=== PATIENT | male | born 1995 | race Caucasian/White ===

== ENCOUNTER 2019-03-18 05:42 | Inpatient (IN) | payer BC, OTHER ==
[2019-03-18] MEDS ORDERED: Ondansetron PF 4 MG/2 ML Vial ONE (06:06)
[2019-03-18] MEDS ORDERED: Morphine 4 MG/ML VIAL ONE (06:06)
[2019-03-18 06:27] LABS: #Basophils 0.1 thou/uL (0.0-0.2); #Eosinphils 0.1 thou/uL (0.0-0.7); #Lymphocytes 3.6 thou/uL (1.20-3.40); #Monocytes 1.5 thou/uL (0.11-0.59); %Basophils 0.7 % (0.0-1.0); %Eosinophils 0.7 % (0.0-10.0); %Lymphocytes 25.2 % (21.0-51.0); %Monocytes 10.2 % (0.0-10.0); %Neutrophils 63.2 % (42.0-75.0); Hemoglobin 17.1 g/dL (14.0-18.0); Mean Corpuscular HGB CONC 33.6 g/dL (32.0-36.0); Mean Corpuscular Hemoglobin 30.8 pg (27.0-31.0); Mean Corpuscular Volume 91.6 fL (78.0-98.0); Mean Platelet Volume 6.4 fL (7.4-10.4); Platelet Count 336 thou/uL (130-400); RBC Distribution Width 12.1 % (11.5-14.5); Red Blood Cell (RBC) Count 5.55 mill/uL (4.70-6.10); White Blood Cell (WBC) Count 14.2 thou/uL (4.8-10.8)
[2019-03-18 06:49] LABS: ALT (SGPT) 18 U/L (8-55); AST (SGOT) 24 U/L (5-34); Albumin 4.7 g/dL (3.5-5.0); Alkaline Phosphatase 84 U/L (40-150); Anion Gap 16 mmol/L (10-20); BUN (Urea Nitrogen) 16 mg/dL (8.9-20.6); Calc. Creatinine Clearance 0 mL/min (70-130); Calcium 10.2 mg/dL (7.8-10.44); Carbon Dioxide 21 mmol/L (22-29); Chloride 101 mmol/L (98-107); Estimated GFR-MDRD Greater than 90; Globulin 4.4 g/dL (2.4-3.5); Glucose 86 mg/dL (70-105); Potassium 4.4 mmol/L (3.5-5.1); Protein, Total 9.1 g/dL (6.0-8.3); Sodium 134 mmol/L (136-145)
[2019-03-18 07:08] LABS: Bilirubin Negative (Negative); Blood, Urine Negative (Negative); Clarity Clear (Clear); Glucose, Urine (Dipstick) Normal (Negative); Leukocyte Negative Leu/uL (Negative); Nitrite Negative (Negative); Protein, Urine (Dipstick) Negative (Neg-Trace); Urobilinogen Normal mg/dL (Less than 2)
--- NOTE | 2019-03-18 09:31 | MRI ---
MRI Lumbar Spine Noncontrast: HISTORY: Bilateral leg weakness and back pain after lifting heavy weights on Friday. COMPARISON: None FINDINGS: The visualized retroperitoneal structures demonstrate a normal appearance. Conus medullaris is normal in morphology and terminates at the L1-2 level. Normal signal intensity is demonstrated in the bone marrow. L1-2: There is no disc bulge or disc herniation. Central spinal canal and neural foramina are patent. L2-3: There is no disc bulge or disc herniation. Central spinal canal and neural foramina are patent. L3-4: There is no disc bulge or disc herniation. Central spinal canal and neural foramina are patent. L4-5: There is a disc osteophyte complex with large central disc protrusion/extrusion resulting in se renetta narrowing of the central spinal canal. The AP dimensions of the disc extrusion measures 1.2 cm in AP dimensions. There is mild bilateral neural foraminal narrowing. L5-S1: There is a broad-based disc bulge with central disc protrusion with associated increased T2-we ighted signal intensity at the right posterolateral margin of the disc protrusion suggesting associate annular tear. This broad-based disc bulge/protrusion does contact the bilateral traversing S1 nerve roots resulting in slight posterior displacement of the nerve roots. There is mild narrowing of the central spinal canal. Mild bilateral neural foraminal narrowing is present. IMPRESSION: 1. There is a disc osteophyte complex with large central disc protrusion/extrusion at the L4-5 level resulting in severe narrowing of the central spinal canal. 2. Broad-based disc osteophyte complex at the L5-S1 level which contacts and results in posterior dis placement of the bilateral traversing S1 nerve roots. 3. Above findings discussed with in the emergency department on 03/18/2019 at 0928 hours.
--- NOTE | 2019-03-18 09:40 | MRI ---
EXAM: MRI Thoracic Spine WO Con PROVIDED CLINICAL HISTORY: Bilateral lower extremity weakness and back pain after lifting heavy weights on Friday. COMPARISON: None FINDINGS: Normal signal intensity is demonstrated in the bone marrow. Paravertebral soft tissues demonstrate no rmal MRI appearance. There are minimal right paracentral disc protrusions at the T7-8 and T8-9 levels with slightly larger right paracentral disc protrusion at the T9-T10 level. The disc protrusions and osteophyte formation at the T8-9 and T9-T10 levels result in slight flattening of the right anterolateral aspect of the spinal cord, but there is normal signal intensity in the spinal cord. No significant additional intradural or extradural defect is identified. Central spinal canal is patent at the remai nedra levels of the thoracic spine. There is no neural foraminal narrowing at any level of the thoracic spine. IMPRESSION: Minimal disc degenerative changes at the T7-8, T8-9, and T9-T10 levels. The neural foramina are paten t at all levels of the thoracic spine.
[2019-03-18] MEDS ORDERED: PHENYLEPHRINE-NS 100 MCG/ML 10 ML SYRINGE ONE (11:27)
[2019-03-18] MEDS ORDERED: Glycopyrrolate 0.2 MG/ML 5 ML SYRINGE ONE (11:27)
[2019-03-18] MEDS ORDERED: Dexamethasone 20 MG/5 ML VIAL ONE (11:27)
[2019-03-18] MEDS ORDERED: Rocuronium Bromide 10 MG/ML (10ML VIAL) ONE (11:27)
[2019-03-18] MEDS ORDERED: Vecuronium 10 MG VIAL ONE (11:27)
[2019-03-18] MEDS ORDERED: Lidocaine 1% PF 5 ML VIAL ONE ×2 (11:27→12:08)
[2019-03-18] MEDS ORDERED: PROPOFOL 200 MG/20 ML VIAL ONE (11:27)
[2019-03-18] MEDS ORDERED: Rocuronium Bromide 50 MG/5 ML VIAL ONE (12:08)
[2019-03-18] MEDS ORDERED: PROPOFOL 20 ML ONE (12:08)
[2019-03-18] MEDS ORDERED: Thrombin 5000 UNITS/5 ML VIAL ONE ×2 (12:24→15:58)
[2019-03-18] MEDS ORDERED: Sodium Chloride 0.9% 10 ML ONE (12:24)
[2019-03-18] MEDS ORDERED: Fentanyl 100 MCG/2 ML VIAL ONE ×4 (13:06→18:29)
[2019-03-18] MEDS ORDERED: Lidocaine 2% Jelly 5 ML TUBE ONE (13:17)
[2019-03-18] MEDS ORDERED: Clindamycin/D5W 900 mg/50 ml Premix Bag ONE (13:27)
[2019-03-18] MEDS ORDERED: Levofloxacin 500 mg/D5W 100 ml Premix Bag ONE (13:27)
--- NOTE | 2019-03-18 13:35 | HP ---
This is a 50-minute initial hospital visit note, in which 50 minutes were spent reviewing the imaging record, evaluation, examination of the patient, and formulation of plan. Greater than 50% time was spent in counseling on Vadim Cardenas. Mr. 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 He is also building a home. He has had a long-standing history of low back and occasional sciatica, but yesterday was lifting plywood while building a home and had the acute onset of worsening over the course of the next 24 hours into the low back, bilateral lower extremities in the L5 and S1 distributions, and also dorsiflexor weakness. He has also had difficulty with any type of spontaneous urination and that he has had significant urinary retention. All of this culminated in essentially the presentation with cauda equina syndrome. An MRI confirms a large disk extrusion at L4-L5 and somewhat smaller at L5-S1 with severe compression of the common dural tube and the cauda equina. This certainly would account for the patient's symptoms. On exam, he is alert and appropriate. He has diminished rectal tone on our emergency medicine team's exam and had a urinary retention over 1000 mL on a bladder scan. He also has severe bilateral foot drop and toe extensor weakness with moderate weakness of the quadriceps bilaterally. This may be pain limited as well. At this point, I have discussed with him and his mother that we need to proceed with surgery emergently as I am concerned about a cauda equina syndrome and to try and prevent further neurologic deficit promotes some sort of return. We are going to plan for an L4 through S1 laminectomies, partial facetectomies, foraminotomies, and diskectomies. We will plan for this and goals, indications, risks, alternatives, and complications were discussed in detail regarding the surgery and they understand that risks are up to and including, but not limited to, medical complications, surgical complications, temporary or permanent neurologic deficit despite surgery, and they understand all these risks and wish we would proceed. IMPRESSION: Cauda equina syndrome. Job ID: [id number]
[2019-03-18] MEDS ORDERED: HYDROcodone/Acetaminophen 7.5/325 mg Tablet PO PRN (17:41)
[2019-03-18] MEDS ORDERED: Fleet Enema 133 ML BOT PR PRN (17:41)
[2019-03-18] MEDS ORDERED: Acetaminophen/Codeine 30-300mg Tablet PO PRN (17:41)
[2019-03-18] MEDS ORDERED: Ondansetron PF 4 MG/2 ML Vial IVP PRN (17:41)
[2019-03-18] MEDS ORDERED: tiZANidine HCl 4 MG TAB PO PRN (17:41)
[2019-03-18] MEDS ORDERED: Bisacodyl 10 MG SUPP PR PRN (17:41)
[2019-03-18] MEDS ORDERED: Morphine 4 MG/ML VIAL SLOW IVP PRN (17:41)
[2019-03-18] MEDS ORDERED: Mag-Al 1200 mg/1200 mg/30 ML UDCUP PO PRN (17:41)
[2019-03-18] MEDS: Clindamycin/D5W 900 MG in Premix Bag 1 BAG IVPB SCH (20:59)
[2019-03-18] MEDS: Sodium Chloride 0.9% 1,000 ML IV SCH (21:00)
[2019-03-18 22:22] VITALS: BMI 36.9
[2019-03-19 05:18] LABS: #Eosinphils 0.1 thou/uL (0.0-0.7); #Lymphocytes 2.8 thou/uL (1.20-3.40); #Monocytes 1.9 thou/uL (0.11-0.59); %Eosinophils 0.3 % (0.0-10.0); %Neutrophils 74.6 % (42.0-75.0); Hemoglobin 13.3 g/dL (14.0-18.0); Mean Corpuscular HGB CONC 33.8 g/dL (32.0-36.0); Mean Corpuscular Hemoglobin 30.5 pg (27.0-31.0); Mean Corpuscular Volume 90.2 fL (78.0-98.0); Mean Platelet Volume 6.6 fL (7.4-10.4); Platelet Count 324 thou/uL (130-400); RBC Distribution Width 11.8 % (11.5-14.5); Red Blood Cell (RBC) Count 4.37 mill/uL (4.70-6.10); White Blood Cell (WBC) Count 18.7 thou/uL (4.8-10.8)
[2019-03-19] MEDS: Clindamycin/D5W 900 MG in Premix Bag 1 BAG IVPB SCH (05:39)
[2019-03-19] MEDS: traMADol HCl 50 MG TAB PO PRN ×3 (05:40→22:14)
--- NOTE | 2019-03-19 08:41 | OP ---
DATE OF PROCEDURE: 03/18/2019 PREOPERATIVE DIAGNOSES: Cauda equina syndrome with L4-L5 and L5-S1 disk extrusions and lumbar radiculopathy. POSTPROCEDURE DIAGNOSES: Cauda equina syndrome with L4-L5 and L5-S1 disk extrusions and lumbar radiculopathy. PROCEDURES PERFORMED: 1. L4-L5 and L5-S1 laminectomies, partial facetectomies, and foraminotomies. 2. Use of operative microscope for microdissection. DESCRIPTION OF PROCEDURE: After informed consent was obtained from the patient in the emergent nature, conveyed to the patient's family, who was taken to the OR. Proper patient, pause, and identification were carried out. He was placed under excellent endotracheal anesthesia and positioned prone on the OR table. All appropriate points were padded. We identified the L4, L5, and S1 dorsal spines and lamina. A linear gamal was made over this region. This area was sterilely cleansed, prepared, and draped. Proper patient, pause, and identification were carried out. Linear gamal was then made and this region again had been sterilely cleansed, prepared, and draped. Proper patient, pause, and identification was again carried out. The wound was then opened with combination of sharp, monopolar, and blunt dissection. The L4, L5, and S1 dorsal spines and lamina were exposed with excellent decompression of common dural tube; the L4, the L5, and the S1 nerve roots, which were quite compressed. Given the disk extrusions, bilateral L4-L5 diskectomies were performed with excellent decompression of common dural tube, the L4 and L5 nerve roots. Then, turned our attention to the L5-S1 and a right-sided L5-S1 diskectomy was performed with excellent decompression. We achieved excellent decompression of both S1 nerve roots as well. We then turned our attention to copious irrigation and we maximized hemostasis throughout. He was quite oozy given the size of his disk extrusions, thus his intraabdominal pressure, where we obtained excellent decompression and hemostasis. The wound was then closed in anatomic layers following sprinkling of vancomycin powder. The patient emerged from anesthesia. Job ID: [id number]
--- NOTE | 2019-03-19 10:38 | PRG ---
DATE OF SERVICE: 03/19/2019 Vadim Cardenas is postoperative day 1 from lumbar decompression and diskectomy. He is moving his left L4 and L5 with a bit more vigor. He had no contraction of his left L5 yesterday. Today, it is very trace. His right L4 is slightly improved with no movement of his right L5 myotome. He does lightly feel the tug of the Caraballo catheter. He is not yet mobilized. We will work on this. This is typical for cauda equina syndrome. Job ID: [id number]
[2019-03-19] MEDS: Sodium Chloride 0.9% 1,000 ML IV SCH ×2 (10:40→21:08)
[2019-03-19] MEDS: Acetaminophen 325 MG TAB PO PRN (17:52)
[2019-03-20] MEDS: traMADol HCl 50 MG TAB PO PRN ×2 (07:54→14:12)
[2019-03-20] MEDS: Sodium Chloride 0.9% 1,000 ML IV SCH (11:41)
[2019-03-20] MEDS: Acetaminophen 325 MG TAB PO PRN (14:12)
--- NOTE | 2019-03-20 14:55 | PRG ---
DATE OF SERVICE: 03/20/2019 Mr. Cardenas is 2 days out from his lumbar decompression for cauda equina syndrome. He continues to have perineal sensation with the tug on the Caraballo catheter and I think it would be prudent that we remove his Caraballo catheter today to start to work on mobilization and see if the patient can empty his bladder. We will do postvoid residuals as well. He does have mild improvement in his dorsiflexion, in particular on the right side today, although he remains flaccid in the right L5 distribution. Overall, he is improving. We will continue to work towards potential inpatient rehab. Job ID: [id number] MTDD
[2019-03-20] MEDS ORDERED: Tamsulosin HCl 0.4 MG CAP PO SCH (16:30)
[2019-03-21] MEDS: Tamsulosin HCl 0.4 MG CAP PO SCH (08:07)
[2019-03-21] MEDS: traMADol HCl 50 MG TAB PO PRN (08:10)
[2019-03-21] MEDS: Milk Of Magnesia 30 ML UDCUP PO PRN (09:16)
[2019-03-21 14:21] LABS: #Basophils 0.1 thou/uL (0.0-0.2); #Eosinphils 0.2 thou/uL (0.0-0.7); #Monocytes 1.4 thou/uL (0.11-0.59); #Neutrophils 7.4 thou/uL (1.40-6.50); %Basophils 0.8 % (0.0-1.0); %Eosinophils 1.1 % (0.0-10.0); %Lymphocytes 35.6 % (21.0-51.0); %Monocytes 9.8 % (0.0-10.0); %Neutrophils 52.7 % (42.0-75.0); Hemoglobin 13.2 g/dL (14.0-18.0); Mean Corpuscular HGB CONC 34.1 g/dL (32.0-36.0); Mean Corpuscular Hemoglobin 30.7 pg (27.0-31.0); Mean Corpuscular Volume 90.2 fL (78.0-98.0); Mean Platelet Volume 6.3 fL (7.4-10.4); Platelet Count 358 thou/uL (130-400); RBC Distribution Width 11.7 % (11.5-14.5); Red Blood Cell (RBC) Count 4.28 mill/uL (4.70-6.10); White Blood Cell (WBC) Count 14.1 thou/uL (4.8-10.8)
[2019-03-21 14:42] LABS: ALT (SGPT) 20 U/L (8-55); AST (SGOT) 18 U/L (5-34); Albumin 3.8 g/dL (3.5-5.0); Alkaline Phosphatase 63 U/L (40-150); Anion Gap 14 mmol/L (10-20); BUN (Urea Nitrogen) 14 mg/dL (8.9-20.6); Bilirubin, Total 0.4 mg/dL (0.2-1.2); Calc. Creatinine Clearance 296 mL/min (70-130); Calcium 9.4 mg/dL (7.8-10.44); Carbon Dioxide 24 mmol/L (22-29); Chloride 104 mmol/L (98-107); Estimated GFR-MDRD Greater than 90; Globulin 3.4 g/dL (2.4-3.5); Glucose 122 mg/dL (70-105); Potassium 3.8 mmol/L (3.5-5.1); Protein, Total 7.2 g/dL (6.0-8.3); Sodium 138 mmol/L (136-145)
[2019-03-22] MEDS: Tamsulosin HCl 0.4 MG CAP PO SCH (09:21)
[2019-03-22] MEDS: traMADol HCl 50 MG TAB PO PRN (09:23)
--- NOTE | 2019-03-22 13:41 | PRG ---
DATE OF SERVICE: 03/22/2019 This is Robbie Benedict PA-C dictating a report for Alex Frey MD. Postoperative recheck: Mr. Cardenas is now postoperative day #4 having undergone multilevel lumbar laminectomies and diskectomy. Unfortunately, the patient sustained a Code Green, in which he had a significant Valsalva maneuver when he was attempting to have a bowel movement. He became significantly lightheaded, but states this immediately resolved once he was placed back in bed. He was up walking around yesterday and was much more self-sufficient according to the patient's mother at bedside. The patient notes continued numbness and tingling into the legs, but again this is similar to what it was immediately postoperatively. He may have slightly more movement in the right lower extremity. In fact, on strength exam, he does have improved strength actually in the bilateral lower extremities as he moves the legs with more vigor. He has stable weakness into the bilateral dorsiflexions and right EHL. He has improving sensation into the bilateral legs. At this time, the patient is stable for discharge from neurosurgical standpoint. We are waiting on insurance approval to inpatient rehab. The patient has remained with Caraballo and he is on Flomax. He has had no bowel incontinence. He is recovering well and we will continue to wait for admission to inpatient rehab, but once this is arranged, he is ready for discharge. Please call with any changes in the patient's neurologic status. Job ID: [id number]
--- NOTE | 2019-03-22 16:13 | PRG ---
DATE OF SERVICE: 03/21/2019 This is Robbie Benedict PA-C dictating a report for Alex Frey MD. SUBJECTIVE: Mr. Cardenas is postoperative day #3, having undergone L4-S1 laminectomies with diskectomies. Overall, the patient is doing well. He has been up and ambulating. We attempted to remove his Caraballo catheter yesterday, but unfortunately he had continued urinary retention and though catheter was in place. He has been started on Flomax. He remains with improved strength in the left lower extremity, but still baseline weakness into the right dorsiflexion and EHL. He has improved sensation and has no leg pain. At this time, we will await inpatient rehab approval and he will likely need to be discharged with his Caraballo catheter. Again, the patient is pleased with his outcome postoperatively and continued to heal well. Job ID: [id number]
[2019-03-22] MEDS: Milk Of Magnesia 30 ML UDCUP PO PRN (18:06)
[2019-03-23] MEDS: Acetaminophen 325 MG TAB PO PRN (09:03)
[2019-03-23] MEDS: Tamsulosin HCl 0.4 MG CAP PO SCH (09:04)
[2019-03-23 11:38] VITALS: BP 132/89; TEMP 98.3
--- NOTE | 2019-03-23 16:52 | DIS ---
DATE OF ADMISSION: 03/18/2019 DATE OF DISCHARGE: 03/23/2019 DISCHARGE DIAGNOSES: 1. Cauda equina syndrome with significant L4 to S1 lumbar spinal stenosis and lumbar herniated disk. 2. Bilateral leg weakness. 3. Obesity. HOSPITAL COURSE: Mr. Cardenas was admitted on 03/18 to undergo emergent lumbar laminectomies and diskectomies for congenitally narrowed canal diameter with acute herniated disks and cauda equina syndrome. The patient required several overnight stays for adequate pain control as well as improvement in his mobility. At the time of discharge, which was today, the patient had actually improved strength in bilateral lower extremities, although he continued with moderate weakness into the right dorsiflexion. He had improvement in sensation as well as pain into bilateral lower extremities as well as into the bladder. He was discharged with a Caraballo catheter and on Flomax. He had significant constipation, which is being remedied, though he is passing flatus. He was mobilizing well at the time of discharge as well to [facility]. Appropriate patient education and outpatient followups were provided to the patient and his mother at bedside. Overall, the patient was doing well neurosurgically with the understanding to call the office with any changes in his neurologic status postoperatively. Job ID: [id number]
== END 2019-03-23 14:08 | DRG 30 ==
LOC: ERS 05:42 → SDC 11:41 → SURG B 18:23
PROVIDERS: ADMIT Surgery; ATTEND Surgery
PROC: 01NB0ZZ Release Lumbar Nerve, Open Approach (ICD-10-PCS; principal; 2019-03-18)
PROC: 0SB40ZZ Excision of Lumbosacral Disc, Open Approach (ICD-10-PCS; 2019-03-18)
DX: G83.4 Cauda equina syndrome (principal); E66.9 Obesity, unspecified; M51.17 Intervertebral disc disorders with radiculopathy, lumbosacral region; M51.16 Intervertebral disc disorders with radiculopathy, lumbar region; K59.00 Constipation, unspecified; M51.27 Other intervertebral disc displacement, lumbosacral region; Z68.36 Body mass index [BMI] 36.0-36.9, adult
CPT/HCPCS: 36415; 36416; 51702; 72146; 72148; 76000; 80053; 81003; 85025; 96374; 96375; J1100; J1956; J2001; J2270; J2405; J2704; J3010; J3370; J3490

== ENCOUNTER 2021-07-15 09:50 | Emergency (ER) | payer OTHER | END 2021-07-15 11:51 | disposition home or self-care (01) | LOC: ERS 09:50 | DX: M54.41 Lumbago with sciatica, right side (principal); R20.2 Paresthesia of skin | CPT/HCPCS: 99283 ==

== ENCOUNTER 2021-08-03 12:20 | Outpatient (CLI) | payer OTHER | END 2021-08-03 12:21 | disposition home or self-care (01) | LOC: TBSIIMAG 12:20 | PROVIDERS: ATTEND Specialist | DX: M51.16 Intervertebral disc disorders with radiculopathy, lumbar region (principal); M48.061 Spinal stenosis, lumbar region without neurogenic claudication; M51.17 Intervertebral disc disorders with radiculopathy, lumbosacral region; Z98.890 Other specified postprocedural states | CPT/HCPCS: 72148 ==

== ENCOUNTER 2021-09-14 12:15 | Outpatient (CLI) | payer OTHER, BC ==
[2021-09-14 23:48] LABS: SARS-CoV-2 PCR by NAA Not Detected (NotDetected)
== END 2021-09-14 12:16 | disposition home or self-care (01) ==
LOC: LABBT 12:15
PROVIDERS: ATTEND Surgery
DX: Z01.818 Encounter for other preprocedural examination (principal); M51.16 Intervertebral disc disorders with radiculopathy, lumbar region; Z20.822 Contact with and (suspected) exposure to COVID-19
CPT/HCPCS: 93005; 93010; U0003; U0005

== ENCOUNTER 2021-09-18 06:00 | Observation (INO) | payer BC, OTHER ==
[2021-09-18] MEDS ORDERED: Thrombin 5000 UNITS/5 ML VIAL ONE (06:34)
[2021-09-18 06:48] LABS: Hemoglobin 14.9 g/dL (14.0-18.0); Mean Corpuscular HGB CONC 32.5 g/dL (32.0-36.0); Mean Corpuscular Hemoglobin 29.6 pg (27.0-31.0); Mean Corpuscular Volume 91.3 fL (78.0-98.0); Mean Platelet Volume 6.4 fL (7.4-10.4); Platelet Count 308 thou/uL (130-400); RBC Distribution Width 11.8 % (11.5-14.5); Red Blood Cell (RBC) Count 5.02 mill/uL (4.70-6.10); White Blood Cell (WBC) Count 9.7 thou/uL (4.8-10.8)
[2021-09-18 07:00] LABS: INR-International Normal Ratio 0.9; Prothrombin Time 12.3 sec (12.0-14.7)
[2021-09-18 07:07] LABS: Anion Gap 15 mmol/L (10-20); BUN (Urea Nitrogen) 13 mg/dL (8.9-20.6); Calc. Creatinine Clearance 241 mL/min (70-130); Calcium 9.4 mg/dL (7.8-10.44); Carbon Dioxide 23 mmol/L (22-29); Chloride 103 mmol/L (98-107); Glucose 82 mg/dL (70-105); Potassium 4.3 mmol/L (3.5-5.1); Sodium 137 mmol/L (136-145)
[2021-09-18] MEDS ORDERED: Fentanyl 250 MCG/5 ML VIAL ONE (07:09)
[2021-09-18] MEDS ORDERED: Midazolam HCl 2 mg/2 ml Vial ONE (07:16)
[2021-09-18] MEDS ORDERED: Levofloxacin 500 mg/D5W 100 ml Premix Bag ONE (07:20)
[2021-09-18] MEDS ORDERED: Clindamycin/D5W 900 mg/50 ml Premix Bag ONE (07:20)
[2021-09-18] MEDS ORDERED: Rocuronium Bromide 10 MG/ML (10ML VIAL) ONE (07:37)
[2021-09-18] MEDS ORDERED: PHENYLEPHRINE-NS 100 MCG/ML 10 ML SYRINGE ONE (07:37)
[2021-09-18] MEDS ORDERED: ePHEDrine 50 MG/ML VIAL ONE (07:37)
[2021-09-18] MEDS ORDERED: Glycopyrrolate 0.2 MG/ML 5 ML SYRINGE ONE (07:37)
[2021-09-18] MEDS ORDERED: Dexamethasone 20 MG/5 ML VIAL ONE (07:37)
[2021-09-18] MEDS ORDERED: PROPOFOL 200 MG/20 ML VIAL ONE (07:37)
[2021-09-18] MEDS ORDERED: Ketorolac Tromethamine 30 MG/ML VIAL ONE (07:37)
[2021-09-18] MEDS ORDERED: Lidocaine 1% PF 5 ML VIAL ONE (07:37)
[2021-09-18] MEDS ORDERED: Ondansetron PF 4 MG/2 ML Vial ONE (07:37)
[2021-09-18] MEDS ORDERED: PACU-Morphine 4MG/ML VIAL SLOW IVP PRN (09:40)
[2021-09-18] MEDS ORDERED: Morphine Sulfate 2 MG/ML SYRINGE SLOW IVP PRN (09:40)
[2021-09-18] MEDS ORDERED: Promethazine HCl 25 MG/ML VIAL IVPB PRN (09:40)
[2021-09-18] MEDS ORDERED: Promethazine HCl 25 MG/ML VIAL IM PRN (09:40)
[2021-09-18] MEDS ORDERED: HYDROmorphone 2 MG/ML VIAL SLOW IVP PRN (09:40)
[2021-09-18] MEDS ORDERED: Meperidine HCl/PF 25 MG/ML VIAL SLOW IVP PRN (09:40)
[2021-09-18] MEDS ORDERED: Ondansetron HCl/PF 4 MG/2 ML Vial IVP PRN (09:40)
[2021-09-18] MEDS ORDERED: traMADol HCl 50 MG TAB PO PRN (10:28)
[2021-09-18] MEDS ORDERED: Acetaminophen 325 MG TAB PO PRN (10:28)
[2021-09-18] MEDS ORDERED: Acetaminophen/Codeine 30-300mg Tablet PO PRN (10:28)
[2021-09-18] MEDS ORDERED: Morphine 4 MG/ML VIAL SLOW IVP PRN (10:38)
[2021-09-18] MEDS ORDERED: Fentanyl 100 MCG/2 ML VIAL ONE (12:09)
[2021-09-18 15:50] VITALS: BMI 29.9
[2021-09-18] MEDS: Clindamycin/D5W 900 MG in Premix Bag 1 BAG IVPB SCH ×2 (16:33→22:15)
[2021-09-18] MEDS: Sodium Chloride 0.9% 1,000 ML IV SCH ×2 (16:40→22:08)
[2021-09-18] MEDS: HYDROcodone/Acetaminophen 7.5/325 mg Tablet PO PRN (18:26)
[2021-09-18] MEDS: tiZANidine HCl 4 MG TAB PO PRN (18:26)
[2021-09-19] MEDS: tiZANidine HCl 4 MG TAB PO PRN (03:15)
[2021-09-19] MEDS: HYDROcodone/Acetaminophen 7.5/325 mg Tablet PO PRN (09:31)
[2021-09-19 12:11] VITALS: BP 147/84; TEMP 98.5
== END 2021-09-19 12:30 | disposition home or self-care (01) ==
LOC: SDC 06:00 → SURG A 10:28
PROVIDERS: ADMIT Surgery; ATTEND Surgery
PROC: 0SB20ZZ Excision of Lumbar Vertebral Disc, Open Approach (ICD-10-PCS; principal; 2021-09-18)
DX: M51.16 Intervertebral disc disorders with radiculopathy, lumbar region (principal); M51.06 Intervertebral disc disorders with myelopathy, lumbar region; M48.061 Spinal stenosis, lumbar region without neurogenic claudication; E66.9 Obesity, unspecified; Z68.34 Body mass index [BMI] 34.0-34.9, adult; Z88.0 Allergy status to penicillin
CPT/HCPCS: 76000; 80048; 85027; 85610; 85730; 96374; 96376; G0378; J1100; J1885; J1956; J2250; J2405; J2704; J3010; J3370; J3490